=== PATIENT | male | born 1970 | race Caucasian/White ===

== ENCOUNTER 2023-05-31 20:55 | Emergency (ER) | payer OTHER, SELFPAY ==
[2023-05-31] VITALS (9 sets, daily range): BP systolic 139–195; BP diastolic 98–124
[2023-05-31 21:38] LABS: % Basophils 0.4 % (0-2); % Eosinophils 2.6 % (0-6); % Immature Granulocytes 0.2 % (0-0.5); % Lymphocytes 21.4 % (20.5-51.1); % Monocytes 12.1 % (1.7-9.3); % Neutrophils 63.3 % (42.2-75.2); Absolute Eosinophils 0.1 10^3/uL (0-0.7); Absolute Monocytes 0.6 10^3/uL (0.1-0.6); Absolute Neutrophils 2.9 10^3/uL (1.4-6.5); Hematocrit 44.5 % (39.0-52.0); Hemoglobin 15.9 g/dL (13.0-18.0); Mean Corp Hgb Conc. 35.7 g/dL (33.0-37.0); Mean Corpuscular Hgb 30.8 pg (27.0-31.0); Mean Corpuscular Volume 86.2 fL (80.0-94.0); Mean Platelet Volume 10.4 fL (7.4-10.4); Nucleated Red Blood Cells % 0 % (-); Platelet Count 205 10^3/uL (130-400); Red Blood Cell Count 5.16 10^6/uL (4.70-6.10); Red Cell Dist. Width 11.9 % (11.5-14.5); White Blood Cell Count 4.5 10^3/uL (4.8-10.8)
[2023-05-31 21:48] LABS: APTT 27.5 Sec (23.4-35.0)
[2023-05-31 21:50] LABS: ALT (SGPT) 27 U/L (0-50); AST (SGOT) 30 U/L (17-59); Albumin 4.2 g/dl (3.5-5.0); Alkaline Phosphatase 41 U/L (38-126); Blood Urea Nitrogen 23 mg/dl (9-20); Calcium 9.2 mg/dl (8.4-10.2); Carbon Dioxide 29 mmol/L (22-30); Chloride 97 mmol/L (98-107); Glucose 116 mg/dl (70-99); Potassium 3.9 mmol/L (3.5-5.1); Sodium 137 mmol/L (135-145); Total Bilirubin 1.3 mg/dl (0.2-1.3); Total Protein 6.9 g/dl (6.3-8.2); eGFR > 60.00
[2023-05-31 22:00] LABS: Troponin I < 0.012 ng/ml
--- NOTE | 2023-05-31 22:07 | ED.GENMED ---
History of Present Illness
<JULY Fisher - Last Filed: 05/31/23 23:48>
General
Chief Complaint: Blood Pressure Problem
Source: patient
Exam Limitations: none
Time Seen by Provider: 05/31/23 22:07
Nursing documentation reviewed up to this point in time: agreed with
Travel History
Have you had any contact with someone who has COVID-19?: No
Do you have any symptoms of coronavirus? Fever > 100 degrees, chills, cough, shortness of breath, sore throat, loss of taste or smell, muscle aches, or headache?: No
History of Present Illness
History of Present Illness:
This is a 53 YOM with PMHx of HTN and aortic aneurysm presenting with elevated BP x 2 days. Pt mentioned his normal BPs are 120s/80s, but that his BPs have been 160s/110s over the past 2 days using home BP cuff. Pt follows with Dr. Romero with
Cardiology and [facility] for ascending aortic aneuysm and HTN management. Pt is being monitored for AA at this time. Pt takes 25mg metoprolol daily. Pt was told to inc to 25mg BID by cardio in March for elevated BPs, has not been doing so regularly,
inc metoprolol dose for 3-4 days. Pt denied fever, ROBERT, dizziness, near syncope, vision changes, chest pain, SOB, N/V/D/C, diaphoresis, cough, rhinorrhea, changes in urinary habits, MSK weakness, sensory changes.
Review of Systems
<JULY Fisher - Last Filed: 05/31/23 23:48>
Review of Systems
Allergies reviewed?: Yes
All Other Systems: ROS reviewed and negative except as documented in HPI and ROS
Constitutional: Reports no symptoms
EENT: Reports no symptoms
Respiratory: Reports no symptoms
Cardiac: Reports other (elevated BPs at home)
ABD/GI: Reports no symptoms
: Reports no symptoms
Musculoskeletal: Reports no symptoms
Skin: Reports no symptoms
Neurological: Reports no symptoms
Hematologic/Lymphatic: Reports no symptoms
Psychiatric: Reports no symptoms
Phy Exam
<JULY Fisher - Last Filed: 05/31/23 23:48>
General Physical Exam
General Presentation: well appearing
General age: appears stated age
General Skin: warm and dry
General Habitus: normal
General Mental: alert
General Hydration: appears well hydrated
ENT Exam
ENT Exam: EOMI and neck supple
Eye Exam
Eye Exam: PERRL and EOMI
Cardiovascular Exam
Cardiovascular Exam: regular rate/rhythm, no edema, no gallop, no JVD, no murmur and normal peripheral pulses
Pulmonary Exam
Pulmonary Exam: lungs clear, no respiratory distress, no rales, chest non tender, no crackles, no rhonchi, no stridor, no wheezing and no cough
Gastrointestinal Exam
Gastrointestinal Exam: normal bowel sounds, non tender, soft, no pulsatile mass, non distended and no masses
Neurological Exam
Neurological Exam: alert, oriented x3, no motor deficits, no sensory deficits, speech normal and normal gait
Musculoskeletal Exam
Musculoskeletal Exam: neuro vasc intact
Skin Exam
Skin Exam: normal color and warm/dry
Psychiatric Exam
Psychiatric Exam: normal mood/affect
Course
<JULY Fisher - Last Filed: 05/31/23 23:48>
Orders/Labs/Results
Orders:
Orders
05/31/23 21:07
Electrocardiogram (*1) Urgent
Reason for Study: Chest Pain
Electrocardiogram (*1) Urgent
Reason for Study: Hypertension, Benign
CR Chest - 2 Views Urgent
Comment:
Reason For Exam: high blood pressure
05/31/23 21:09
EKG- Treatment ONCE
05/31/23 21:19
Complete Blood Count/With Diff Urgent
Comprehensive Metabolic Panel Urgent
Magnesium Urgent
TSH Urgent
Comment: ADD ON
Troponin I Urgent
05/31/23 21:30
PTT Urgent
05/31/23 21:54
Add On- LAB Urgent
Tests Added?: magnesium and TSH
05/31/23 22:42
Metoprolol [Lopressor] 5 mg IV NOW STA
05/31/23 22:43
Metoprolol [Lopressor] 5 mg .ROUTE .STK-MED ONE
Abnormal Lab Results
05/31/23
21:19
WBC 4.5 L 10^3/uL
(4.8-10.8)
Absolute Lymphs (auto) 1.0 L 10^3/uL
(1.2-3.4)
Monocytes % 12.1 H %
(1.7-9.3)
Chloride 97 L mmol/L
(98-107)
BUN 23 H mg/dl
(9-20)
Glucose 116 H mg/dl
(70-99)
05/31/23 21:19
05/31/23 21:19
Vital Signs
Initial and Last Documented VS:
Initial Vital Signs
Temp Pulse Resp BP Pulse Ox
98.3 F 72 20 195/124 97
05/31/23 20:59 05/31/23 20:59 05/31/23 20:59 05/31/23 20:59 05/31/23 20:59
Last Documented Vital Signs
Temp Pulse Resp BP Pulse Ox
98.3 F 62 20 139/99 96
05/31/23 20:59 05/31/23 23:45 05/31/23 23:45 05/31/23 23:40 05/31/23 23:45
<Pat Walter DO - Last Filed: 06/01/23 00:02>
Orders/Labs/Results
Orders:
Orders
05/31/23 21:07
Electrocardiogram (*1) Urgent
Reason for Study: Chest Pain
Electrocardiogram (*1) Urgent
Reason for Study: Hypertension, Benign
CR Chest - 2 Views Urgent
Comment:
Reason For Exam: high blood pressure
05/31/23 21:09
EKG- Treatment ONCE
05/31/23 21:19
Complete Blood Count/With Diff Urgent
Comprehensive Metabolic Panel Urgent
Magnesium Urgent
TSH Urgent
Comment: ADD ON
Troponin I Urgent
05/31/23 21:30
PTT Urgent
05/31/23 21:54
Add On- LAB Urgent
Tests Added?: magnesium and TSH
05/31/23 22:42
Metoprolol [Lopressor] 5 mg IV NOW STA
05/31/23 22:43
Metoprolol [Lopressor] 5 mg .ROUTE .STK-MED ONE
Abnormal Lab Results
05/31/23
21:19
WBC 4.5 L 10^3/uL
(4.8-10.8)
Absolute Lymphs (auto) 1.0 L 10^3/uL
(1.2-3.4)
Monocytes % 12.1 H %
(1.7-9.3)
Chloride 97 L mmol/L
(98-107)
BUN 23 H mg/dl
(9-20)
Glucose 116 H mg/dl
(70-99)
05/31/23 21:19
05/31/23 21:19
Vital Signs
Initial and Last Documented VS:
Initial Vital Signs
Temp Pulse Resp BP Pulse Ox
98.3 F 72 20 195/124 97
05/31/23 20:59 05/31/23 20:59 05/31/23 20:59 05/31/23 20:59 05/31/23 20:59
Last Documented Vital Signs
Temp Pulse Resp BP Pulse Ox
98.3 F 62 20 139/99 96
05/31/23 20:59 05/31/23 23:45 05/31/23 23:45 05/31/23 23:40 05/31/23 23:45
<JULY Fisher - Last Filed: 05/31/23 23:48>
MDM/Problems Addressed
Differential Diagnosis Includes:
ACS, HTN emergency, atrial fibrillation, HTN urgency
MDM/Problems Addressed:
53 YOM presenting with elevated BP
Chronic conditions affecting care: HTN
Acute Exacerbation and/or Progression of Chronic Illness: HTN
<JULY Fisher - Last Filed: 05/31/23 23:48>
*Pulse Oximetry
Patient hypoxic: no
*EKG
Interpreted by ED Provider?: Yes
Interpretation: normal
Comparison EKG: no comparison EKG present
Rate: normal
Rhythm: sinus
[place]: normal axis
Interval: normal interval
QRS Pattern: normal QRS
Ischemia: no ischemia
*Order Selector Interpretation
Rate: normal
Interpretation: normal
Rhythm: sinus
*Critical Care Note
Total Time (30-74mins, 75-104mins- exclusive of procedures): Not Applicable
<Pat Walter DO - Last Filed: 06/01/23 00:02>
*Radiology
Radiology exam reviewed: preliminary read by ED provider (Chest x-ray is unremarkable. Unchanged from previous.)
ED Attending Note
<JULY Fisher - Last Filed: 05/31/23 23:48>
-
Portions of this chart may have been created with voice recognition software.� Occasional wrong word or��sound alike� substitutions may have occurred due to the inherent limitations of voice recognition software.
<Pat Walter, DO - Last Filed: 06/01/23 00:02>
ED Attending Note
Patient seen and examined by attending physician: Yes
I performed the substantive portion of visit, reviewed & personally made and approve the management plan that is documented in note by myself or NELSON.: Yes
I performed a history and physical exam of patient and discussed management with resident, I reviewed resident's note and agree with documented findings and plan of care.: Yes
ED Attending Note:
This is a 53-year-old gentleman who has history of hypertension, history of dilated aortic root/ascending aorta along with history of palpitations related to PVCs. He follows with cardiology, Dr. Machuca with last visit March 2023. At that
time echocardiogram showed dilated aortic root and ascending aorta at 4.6 cm, slightly progressed from previous echocardiogram. He was also noted to have elevated blood pressure at 140/80. As such recommended to increase his metoprolol XL from 25
mg once a day to twice daily dosing along with CT angiogram of the chest for further evaluation of ascending aorta which was performed in March which showed mild ectasia of ascending aorta with largest diameter of 3.7 cm and no evidence of
dissection, minimal calcification of the peripheral left main coronary artery. Incidental 3 mm nodule right middle lobe.
Patient states his blood pressure is generally well-controlled when monitoring it on a nightly basis, 120-130/80. He does admit to poor compliance with twice daily metoprolol but has been consistent with once daily metoprolol.
Over the past several days however blood pressure has been markedly elevated 160s to 170s over 100-1 10. As such he has recently increased his metoprolol to twice daily dosing over the past few days, despite doing so his blood pressure remains
elevated.
He does admit to feeling quite anxious, worried about his elevated blood pressure, other than this he has remained asymptomatic. He denies chest pain or palpitations, no headache, no dizziness nor lightheadedness, no shortness of breath.
He has had no change in weight, no leg pain or swelling. No recent URI. He denies decongestant use. Denies drug use.
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 He denies difficulty sleeping nor lack of sleep.
With reassuring CT angiogram performed March 2023 plan was for repeat CT angiogram of the chest August of this year with follow-up with cardiology in August.
53-year-old gentleman appears his stated age, awake and alert, pleasant, appears in no acute distress. Mildly anxious in appearance. is at bedside. Initial triage blood pressure 195/124, currently 161/110.
HEENT: Oral mucosa is moist. No rhinorrhea. Anicteric.
Neck is supple, nontender, no JVD, no bruit, no adenopathy.
Heart is regular rate and rhythm at 68. No murmur no rub.
Lungs are clear to auscultation, respirations are easy nonlabored.
Abdomen is soft and nontender.
Extremities without clubbing or cyanosis nor edema. Peripheral pulses are full and equal. Nontender.
Skin is warm and dry, normal color, good turgor. No rash.
Neuro: Awake alert and oriented x 3. No focal neurodeficits. Gait is duran and steady.
Patient presents with accelerated hypertension. Longstanding history of generally well-controlled hypertension.
It is reassuring that he has been essentially asymptomatic. Nothing in history worrisome for end-organ damage.
He is mildly anxious and admits to significant worry over the past several days regarding his elevated blood pressure. His anxiety could certainly be adding to elevated blood pressure readings.
EKG is reassuring, within normal limits showing normal sinus rhythm, normal axis, normal intervals, no acute ST-T wave abnormalities.
Labs are unremarkable including negative troponin. Normal renal function.
At this point with reassuring labs, EKG and patient remains asymptomatic, no indication for radiologic studies.
Will give an IV dose of Lopressor and continue to observe for effect.
05/31/2023 2357 PM
Blood pressure has improved to 139/99.
Patient resting comfortably, continues to offer no complaints.
Chest x-ray is unremarkable.
Will discharge to home with recommendations to continue metoprolol XL 25 mg twice daily. Continue to monitor blood pressure only once per day, record results and follow-up with cardiology this week for recheck.
Discharge Plan
Departure
Patient Disposition: Home (Routine Discharge)
Date of Disposition: 05/31/23
Time of Disposition: 23:57
Patient with high blood pressure during this ER visit?: No
Condition: Good
Discharge Problem:
Accelerated essential hypertension
Instructions: High Blood Pressure (DC)
Referrals:
Lukas Romero MD [Active] - Call in 1-3 days for appt
Interventions
Interventions:
*Risk Screen - Suicide Last Done: 05/31/23 20:59
*General Assessment Last Done: 05/31/23 20:59
*Neglect/Abuse Screening Last Done: 05/31/23 20:59
ED- Fall Risk Assessment Last Done: 05/31/23 21:51
*ED COVID-19 Vaccine History Last Done: 05/31/23 21:51
ED- Cardiac Assessment Last Done: 05/31/23 21:51
ED- Neurological Assessment Last Done: 05/31/23 21:51
ED- Pulmonary Assessment Last Done: 05/31/23 21:51
[2023-05-31 22:14] LABS: Magnesium 2.1 mg/dl (1.6-2.3)
[2023-05-31] MEDS: LOPRESSOR 5 MG IV (22:45)
[2023-05-31 22:58] LABS: TSH 4.45 uIU/ml (0.47-4.68)
[2023-06-01] VITALS: BP 149/94
== END 2023-06-01 00:15 | disposition home or self-care (01) ==
LOC: EMR 20:55
PROVIDERS: Emergency Medicine; EMERGENCY PHYSICIAN Emergency Medicine; FAMILY PHYSICIAN Family Medicine
DX: I10 Essential (primary) hypertension (principal); F41.9 Anxiety disorder, unspecified; I71.9 Aortic aneurysm of unspecified site, without rupture
CPT/HCPCS: 99285; 96374; 71046; 80053; 83735; 84443; 84484; 85025; 85730; 93005

== ENCOUNTER → 2023-09-09 15:26 | Outpatient (REF) | payer OTHER, SELFPAY | LOC: HWRAD 15:26 | PROVIDERS: ATTENDING PHYSICIAN Internal Medicine Cardiovascular Disease; FAMILY PHYSICIAN Family Medicine | DX: I71.21 Aneurysm of the ascending aorta, without rupture (principal) | CPT/HCPCS: 71250 ==

== ENCOUNTER → 2024-08-15 15:54 | Outpatient (REF) | payer OTHER, SELFPAY | LOC: RCS 15:54 | PROVIDERS: ATTENDING PHYSICIAN Family Medicine | DX: I77.810 Thoracic aortic ectasia (principal); I10 Essential (primary) hypertension; R00.2 Palpitations | CPT/HCPCS: 93306 ==